=== PATIENT | male | born 1950 | race Caucasian/White ===

== ENCOUNTER 2017-09-20 06:53 | Day surgery (SDC) | payer MEDICARE, BC ==
[~2017-09-20 06:53] MED LIST: RINGER'S SOLUTION,LACTATED 1,000 ML IV PRN
[2017-09-20] MEDS ORDERED: RINGER'S SOLUTION,LACTATED 1,000 ML IV PRN (08:18)
[2017-09-20 09:39] VITALS: BP 123/70
--- NOTE | 2017-09-21 16:55 | OR ---
Operative Report - Dictated Report Narrative: OPERATIVE REPORT DATE OF OPERATION: 09/20/2017 PREOPERATIVE DIAGNOSIS: Family history of colon cancer. No recent dedicated colon studies POSTOPERATIVE DIAGNOSIS: 3 mm area of polypoid change in the cecum (pathology pending). Moderate sigmoid diverticulosis OPERATION: Colonoscopy with hot biopsy forceps polypectomy in the cecum SURGEON: Jayme Carrera MD ANESTHESIA: ENEDELIA Mills CRNA INDICATIONS FOR PROCEDURE: The patient is a 66-year-old male referred by Dr. Casas. The patient had a normal colonoscopy in 2006. His brother had colon cancer at age 73. The patient currently is asymptomatic and moves his bowels twice a day. FINDINGS: 3 mm area of possible polypoid change in the cecum (pathology pending ). Moderate sigmoid diverticulosis NARRATIVE OF PROCEDURE: The patient was identified in the holding area, and prior to the administration of anesthetic, a multidisciplinary timeout was observed. With the patient in the left lateral position and after the administration of intravenous sedation, the perineum was inspected. There was no evidence of pilonidal disease or skin breakdown. The external appearance of the anus was normal. Sphincter tone was good. The flexible fiberoptic colonoscope was inserted into the rectum which was insufflated with air. The rectal mucosa and submucosal vascular pattern appeared normal, the prep was seen to be complete. The scope was advanced through the sigmoid colon, which contained numerous large non-impacted noninflamed diverticular openings. The scope was advanced up the descending colon, and around the splenic flexure where the triangular haustral architecture of the transverse colon was seen. The scope was advanced across the transverse colon, around the hepatic flexure to the cecum, where the confluence of tenia and the ileocecal valve were identified. The mucosa at this level appeared normal. There was a small 3 mm area of possible polypoid change on a proximal cecal fold. This was biopsied with hot biopsy forceps and thoroughly destroyed with electrocautery. The site was seen to be complete and hemostatic. The scope was then slowly withdrawn in a circular fashion so that all aspects of colonic mucosa were inspected. The colon was normal in course and caliber. The haustral architecture appeared well preserved throughout with no evidence of external compression. The mucosa and submucosal vascular pattern appeared normal, specifically there was no gross evidence to suggest colitis or inflammatory bowel disease and no AV malformations were seen. The diverticulosis was moderate in degree and confined primarily to the sigmoid colon. No additional polyps were encountered. The scope was gradually withdrawn to the level of the rectum. As much insufflated air as possible was removed. The scope was withdrawn from the patient and the procedure terminated. The patient tolerated the anesthetic and procedure well without complication and was transferred back to the ambulatory surgery area awake and in stable condition. The patient remained stable throughout a period of postoperative observation. He denied abdominal discomfort, was able to tolerate by mouth intake, and was up without assistance. I shared the operative findings with the patient and he was given copies of the photographs which appear in the medical record. He was discharged home with instructions not to engage in hazardous activity today, but may resume normal activity tomorrow, and advance diet as tolerated. He is to continue those medications as listed in the history and physical exam. I made arrangements to contact him with the biopsy reports and will make additional recommendations for treatment and follow-up based upon those results. Reviewed and electronically signed
== END 2017-09-20 06:54 | disposition home or self-care (01) ==
LOC: AMB 06:53
PROVIDERS: ATTEND Surgery
PROC: 0DBH8ZX Excision of Cecum, Via Natural or Artificial Opening Endoscopic, Diagnostic (ICD-10-PCS; principal; 2017-09-20)
DX: Z12.11 Encounter for screening for malignant neoplasm of colon; I10 Essential (primary) hypertension; E78.5 Hyperlipidemia, unspecified; K57.30 Diverticulosis of large intestine without perforation or abscess without bleeding; Z68.26 Body mass index [BMI] 26.0-26.9, adult; Z80.0 Family history of malignant neoplasm of digestive organs; K63.5 Polyp of colon

== ENCOUNTER 2018-11-01 06:27 | Inpatient (IN) ==
--- NOTE | 2018-10-19 07:53 | ANES ---
Anesthesia Pre Procedure Eval HOME MEDICATIONS Ascorbic Acid [Vitamin C] 1,000 mg PO DAILY 09/17/17 [Last Taken Unknown] Flaxseed Oil [Flax Seed Oil] 1,000 mg PO DAILY 09/17/17 [Last Taken Unknown] Multivit-Min/FA/Lycopen/Lutein [Centrum Silver Tablet] 1 ea PO DAILY 09/17/17 [Last Taken Unknown] ibuprofen 200 mg capsule 200 mg PO Q8H 05/20/18 [Last Taken Unknown] tadalafil 5 mg tablet 5 mg PO DAILY #10 tab 06/08/18 [Last Taken Unknown] rosuvastatin 5 mg tablet 5 mg PO HS #90 tab 07/20/18 [Last Taken Unknown] metoprolol tartrate 100 mg tablet 100 mg PO DAILY #90 tab 09/14/18 [Last Taken Unknown] losartan 50 mg tablet 50 mg PO BID #180 tab 09/16/18 [Last Taken Unknown] tramadol 50 mg tablet See Rx Instructions PO Q6H PRN #60 tab 10/05/18 [Last Taken Unknown] walker See Dose Instructions .ROUTE .MEDSUPPLY #1 ea 10/12/18 [Last Taken Unknown] amlodipine 10 mg tablet 10 mg PO DAILY #90 tab 10/18/18 [Last Taken Unknown] Allergies/Adverse Reactions: Allergies Allergy/AdvReac Type Severity Reaction Status Date / Time No Known Allergies Allergy Verified 10/10/18 14:06 - Planned Procedure Planned Procedure: Left Arthroplasty Total Hip Medication List Reviewed:: Yes Allergies Verified: Yes Medical History (Last Reviewed 10/19/18 @ 07:52 by Wilver Parikh CRNA) Primary osteoarthritis of hips, bilateral (Chronic) Onset Date: ~01/05/18 Leo presents for follow-up of left hip pain secondary to osteoarthritis. At this point he has failed all nonoperative options including oral pain medications, physical therapy, intra-articular corticosteroid injections, and activity modification. He is here for a preoperative visit for planned left total hip arthroplasty. I counseled him on the procedure itself, the risks and benefits, and the expected postoperative recovery. Risks of surgery include, but are not limited to, infection, dislocation, intraoperative fracture, aseptic loosening, leg length discrepancy, persistent pain, stiffness, thigh pain, wound complications, DVT/PE, limp, and risks with anesthesia. After discussion he wishes to proceed with surgery. Hypertension (Chronic) Onset Date: Unknown Hyperlipemia (Chronic) Onset Date: Unknown Wears glasses Onset Date: Unknown Surgical History (Last Reviewed 10/19/18 @ 07:52 by Wilver Parikh CRNA) Hx of colonoscopy Onset Date: ~09/20/17 09/20/17- Deandre; hyperplastic polyp. Mod sigmoid diverticulosis. Recheck 10 yrs. 05/19/06- Juancho;normal Family History (Last Reviewed 10/19/18 @ 07:52 by Wilver Parikh CRNA) Father , Age 75 Colon cancer Lung cancer Mother Dementia AAA (abdominal aortic aneurysm) A-fib Hypertension Sister Thyroid cancer Sister Family history of thyroid problem 2 sisters Son Alive and well Daughter Alive and well - Family Anesthesia History Family History:: no untoward family reactions to anesthesia - Airway/Neck/Teeth Teeth Condition: intact Neck Exam: full range of motion Mallampatti Score: 2 Thyromental (T-M) distance: > 6 cm Mandibulo Hyoid distance: > 3 cm - Respiratory Smoking Status: Never smoker Sleep Apnea currently treated: No Sleep Apnea by current assessment: No - Cardiovascular Cardiac History: hypertension, hyperlipidemia Tolerate Activity: Good - Anesthesia Assessment and Plan ASA Class: PS, II Anesthesia Type Plan: Spinal
[~2018-11-01 06:27] MED LIST changes: -RINGER'S SOLUTION,LACTATED 1,000 ML IV PRN; +ROPIVACAINE HCL/PF 100 MG, EPINEPHrine 0.2 MG, KETOROLAC TROMETHAMINE 30 MG in NORMAL S... IJ PRN; +TRANEXAMIC ACID 1,000 MG in NORMAL SALINE 100 ML IV PRN; +ceFAZolin SODIUM 1 GM VIAL IV PRN
[2018-11-01] MEDS: RINGER'S SOLUTION,LACTATED 1,000 ML IV PRN ×2 (07:07→08:40)
--- NOTE | 2018-11-01 07:22 | ANES ---
Anesthesia Pre Procedure Eval Vitals/Labs: Last Vital Signs Temp 36.0 C 11/01/18 06:30 Pulse 52 L 11/01/18 06:30 Resp 18 11/01/18 06:30 BP 112/74 11/01/18 06:30 Pulse Ox 97 11/01/18 06:30 HOME MEDICATIONS Ascorbic Acid [Vitamin C] 1,000 mg PO DAILY 09/17/17 [Last Taken 10/31/18] Flaxseed Oil [Flax Seed Oil] 1,000 mg PO DAILY 09/17/17 [Last Taken 10/31/18] Multivit-Min/FA/Lycopen/Lutein [Centrum Silver Tablet] 1 ea PO DAILY 09/17/17 [Last Taken 10/31/18] tadalafil 5 mg tablet 5 mg PO DAILY #10 tab 06/08/18 [Last Taken Unknown] rosuvastatin 5 mg tablet 5 mg PO HS #90 tab 07/20/18 [Last Taken 10/31/18] metoprolol tartrate 100 mg tablet 100 mg PO DAILY #90 tab 09/14/18 [Last Taken 10/31/18] losartan 50 mg tablet 50 mg PO BID #180 tab 09/16/18 [Last Taken 11/01/18] walker See Dose Instructions .ROUTE .MEDSUPPLY #1 ea 10/12/18 [Last Taken Unknown] amlodipine 10 mg tablet 10 mg PO DAILY #90 tab 10/18/18 [Last Taken 11/01/18] Aspirin 325 mg PO DAILY 10/19/18 [Last Taken 10/23/18] tramadol 50 mg tablet See Rx Instructions PO Q6H PRN #60 tab 10/26/18 [Last Taken 10/31/18] Allergies/Adverse Reactions: Allergies Allergy/AdvReac Type Severity Reaction Status Date / Time No Known Allergies Allergy Verified 11/01/18 06:42 - Planned Procedure Planned Procedure: Left Total Hip Arthroplasty Medication List Reviewed:: Yes Allergies Verified: Yes Medical History (Last Reviewed 11/01/18 @ 07:21 by Serjio Roldan CRNA) Primary osteoarthritis of hips, bilateral (Chronic) Onset Date: ~01/05/18 Leo presents for follow-up of left hip pain secondary to osteoarthritis. At this point he has failed all nonoperative options including oral pain medications, physical therapy, intra-articular corticosteroid injections, and activity modification. He is here for a preoperative visit for planned left total hip arthroplasty. I counseled him on the procedure itself, the risks and benefits, and the expected postoperative recovery. Risks of surgery include, but are not limited to, infection, dislocation, intraoperative fracture, aseptic loosening, leg length discrepancy, persistent pain, stiffness, thigh pain, wound complications, DVT/PE, limp, and risks with anesthesia. After discussion he wishes to proceed with surgery. Hypertension (Chronic) Onset Date: Unknown Hyperlipemia (Chronic) Onset Date: Unknown Wears glasses Onset Date: Unknown Surgical History (Last Reviewed 11/01/18 @ 07:21 by Serjio Roldan CRNA) Hx of colonoscopy Onset Date: ~09/20/17 09/20/17- Deandre; hyperplastic polyp. Mod sigmoid diverticulosis. Recheck 10 yrs. 05/19/06- Juancho;normal Family History (Last Reviewed 11/01/18 @ 07:21 by Serjio Roldan CRNA) Father , Age 75 Colon cancer Lung cancer Mother AAA (abdominal aortic aneurysm) A-fib Dementia Hypertension Sister Thyroid cancer Arthritis Sister Family history of thyroid problem 2 sisters Son Alive and well Daughter Alive and well - Family Anesthesia History Family History:: no untoward family reactions to anesthesia, no familial bleeding tendencies, no family history of clotting disorders, no family history of premature - Airway/Neck/Teeth Within Normal Limits:: Yes Teeth Condition: intact Mallampatti Score: 2 Thyromental (T-M) distance: > 6 cm Mandibulo Hyoid distance: > 3 cm - Respiratory Respiratory Physical: lungs clear Smoking Status: Never smoker Discussed smoking cessation including day of surgery: No Sleep Apnea currently treated: No Sleep Apnea by current assessment: No Discussed Risks/Treatment of CESAR: No - Cardiovascular Tolerate Activity: Good Heart Sounds: S1 & S2, Regular - Anesthesia Assessment and Plan ASA Class: PS, II Anesthesia Type Plan: Spinal
[2018-11-01] MEDS ORDERED: VANCOMYCIN HCL 1 GM in DEXTROSE 5 % IN WATER 250 ML IV ONE ×2 (09:34)
[2018-11-01] MEDS ORDERED: MAG HYDROX/ALUMINUM HYD/SIMETH 30 ML UDC PO PRN (10:06)
[2018-11-01] MEDS ORDERED: oxyCODONE HCL/ACETAMINOPHEN 1 TAB TABLET PO PRN (10:06)
[2018-11-01] MEDS ORDERED: MAGNESIUM HYDROXIDE 30 ML UDC PO PRN (10:06)
[2018-11-01] MEDS ORDERED: MORPHINE SULFATE 4 MG/ML SYRG IV PRN (10:06)
[2018-11-01] MEDS ORDERED: diphenhydrAMINE HCL 50 MG/ML VIAL IV PRN (10:06)
[2018-11-01] MEDS ORDERED: ACETAMINOPHEN 500 MG TABLET PO PRN (10:06)
[2018-11-01] MEDS ORDERED: ONDANSETRON HCL/PF 2 MG/ML VIAL IV PRN (10:06)
--- NOTE | 2018-11-01 10:15 | OR ---
Operative Report - Dictated Report Narrative: Date: 11/01/2018 Preoperative diagnosis: Left hip degenerative joint disease. Postoperative diagnosis: Left hip degenerative joint disease. Procedure: Left total hip arthroplasty. Surgeon: Barrington Downing M.D. [employer] Marketing Representative: Marck Mcginnis PA-C provided a set of essential, skilled, educated hands that assisted in positioning, transfer, retraction, manipulation, irrigation, closure of wounds, and placement of dressings all of which could not be provided by the available surgical crew. Anesthesia: Spinal and local periarticular joint injection. Complications: None Specimens: Bone for disposal. Estimated blood loss: 200 milliliters. Retained implants: Depuy [place] size 6 femoral stem standard offset. Size 58 millimeter ouside diameter 3-hole Henry Gription acetabular cup. 58 millimeter outside by 36 millimeter inside diameter highly cross-linked acetabular liner. 36 millimeter diameter + 8.5millimeter ceramic femoral head. Cancellous 6.5mm screw 30 millimeter length Indications: Leo is a 68-year-old active male in good health. This patient w as followed in my clinic for period of time with significant complaints of left hip pain consistent with arthritic changes. He has failed conservative measures including but not limited to activity modification, passage of time, medications, and other conservative measures. Patient wished to proceed with surgical treatment. The risks, benefits, and alternatives were discussed in clinic. The risks of , blood clots, bleeding, infection, nerve/tendon blood vessel/ injury, malposition of components, dislocation and/or instability of joint, intraoperative fracture, postoperative limited range of motion, persistent pain, failure of components, and need for additional procedures. Patient wished to proceed. Consent was obtained after answering all questions. Procedure: After marking the correct extremity on the floor, the patient was taken to the operating room. A timeout was performed. IV antibiotics consisting of 2 g of Ancef were administered prior to the procedure. A spinal anesthetic was induced by anesthesia. A Duarte catheter was inserted. The patient was then transitioned to a lateral position on a well-padded pegboard. And an axillary roll was placed. The head was in neutral position. The non- operative down leg was well-padded with SCD and SANDY hose in place. The arms were supported and padded to protect from any undue pressure on the bony prominences and nerves. Well-padded anterior and posterior pelvic and chest posts were secured in order to maintain a stable position of the pelvis. This was placed so that the pelvis was perpendicular to the floor. The body was in line with the pelvis. Once it was felt that we had protected all the bony prominences and the patient was well secured with a safety belt as well, the leg was pre-scrubbed with alcohol, prepped and draped in a standard sterile fashion. A standard anterior lateral hip incision was marked out over the greater trochanter. Ioban drapes were then placed. The skin incision was then made. Sharp dissection with a scalpel utilizing cautery for hemostasis was carried out down to the gluteus and iliotibial band fascia. This was split in line with the skin incision. The greater trochanter bursa was excised. The anterior and posterior margins of the abductor tendon were identified. The anterior 1/3 of the tendon was tagged and reflected off the greater trochanter leaving a sleeve of tendon for repair at the completion of the case. This exposed the underlying hip joint capsule. A limb length stitch was placed in the skin and referenced off a phil on the greater trochanter for evaluation of intraoperative limb lengths. An inverted T-type capsulotomy was made extending this up to the brim of the acetabulum. Using Homans to assist with elevation of the soft tissues of f the anterior, superior, and inferior aspects of the femoral neck, the hip was then placed in a figure 4 position and the femoral head was dislocated. With the leg in an externally rotated and adducted position, the cutting flag was utilized in order to phil for a standard femoral neck cut approximately a fingerbreadth above the level of the lesser trochanter. This was done while protecting the surrounding soft tissues with Homans. The femoral head was then removed and sized for guidance on preparation of the acetabulum. It was noted that there was loss of articular cartilage on both the femoral head and weightbearing portions of the acetabulum. We then returned the leg to the table and turned our attention to the acetabulum. While protecting the surrounding soft tissues, the labrum and remaining tissue in the fovea were excised using a scalpel and cautery. A series of reamers up to size 57 millimeter were utilized to prepare the acetabulum. The final reamer had good purchase and exposed the bleeding subchondral bone. The acetabulum was then thoroughly irrigated ensuring that all bony and cartilaginous materials were removed and the final acetabular shell was impacted into place. This was placed in approximately 40 degrees of abduction and 20 degrees of anteversion utilizing the outrigger and body axis for alignment. This had a good press fit. One 6.5mm cancellous screw was placed in the posterior superior quadrant of the acetabulum. The shell was then thoroughly irrigated and the final polyethylene was impacted into place ensuring that it seated completely. This was then protected with a sponge while we returned our attention to the femur. With the leg in a figure 4 position utilizing Homans for soft tissue protection, a box cutting osteotome, followed by Charnley awl, followed by serial reamers and broaches were utilized in order to prepare the femur. It was found that a size 6 broach gave good axial and rotational stability. The calcar reamer was utilized in order to clean up the cut edges. The proximal femur was visualized to ensure that there were no signs of fracture. A series of heads and necks were trialed. It was found that a standard neck and a + 8.5 mm femoral head gave good overall stability. There was minimal longitudinal instability. With the leg in the position of sleep the femoral head was well covered. Hip range of motion was able to reach full extension and external rotation to greater than 75 degrees prior to impingement along the posterior acetabulum. The hip was able to be flexed to greater than 90 degrees with internal rotation greater than 60 degrees prior to anterior impingement. The limb lengths were near equal based on comparison to the contralateral side and the prior placed limb length stitch. At this point was felt this was the appropriately sized femoral components as well as neck and femoral head. The trial implants were removed. The femur was thoroughly irrigated. The final implants were impacted in the place and the hip was reduced. After ensuring that there was no damage to the proximal femur, the standard periarticular joint injection of ropivacaine, Toradol, and epinephrine were injected into the joint capsule and surrounding soft tissues. 1 g of vancomycin powder was placed in the joint. The capsule was repaired with interrupted #1 Vicryl. The abductor tendon was repaired to the greater trochanter utilizing Mersilene tape through drill holes. This was oversewn with #1 Vicryl. The fascia was closed with running #1 PDS Stratafix. The wounds were thoroughly irrigated as we closed in layers. The deep fat layer was closed with 0 PDS Stratafix. The subcutaneous tissue was closed with interrupted 3-0 Vicryl and the skin with a running subcuticular 4-0 monocryl and Prineo dressing. All sponge, needle, blade, and instrument counts were correct prior to closing the wounds. Sterile dressings consisting of Xeroform, 4 x 4's, ABD, and tape were applied. The patient was awoken and transferred to the hospital bed and then to the postanesthesia care unit in stable condition. Postoperative condition: The plan is to admit to the medical/surgical inpatient floor postoperatively. There will be a projected 1 to 3 day hospital stay. Postoperatively 24 hours of IV antibiotics, pain control, physical therapy, occupational therapy, and medical comanagement will be utilized. Patient will be weightbearing as tolerated with anterior hip precautions. Postoperative films will be obtained in the recovery room.
--- NOTE | 2018-11-01 10:17 | POSTOP NO ---
Date of Surgery: 11/01/18 Anesthesia: Spinal Patient Tolerated the Procedure: Well Post Operative Diagnosis/Procedures: Pre Operative Diagnosis: L hip osteoarthritis Post Operative Diagnosis: L hip osteoarthritis Procedure Performed: L total hip arthroplasty Pigment Pumper: Marck Mcginnis PA-C Tourniquet Time (minutes): None Estimated Blood Loss: 200 mL Drains: None Specimens: Femoral head for disposal Surgical Complications: None Findings: DJD of hip Condition: Good Disposition: Inpatient floor
--- NOTE | 2018-11-01 10:33 | ANES ---
Post Anesthesia Discharge - Transfer of Care Transfer of Care handoff given to nurse: Yes - Discharge from PACU Discharge from PACU when meets criteria: Yes - Discharge to ASU Discharge to ASU-no complications/pt stable: Yes
[2018-11-01] MEDS: NORMAL SALINE 1,000 ML IV PRN ×2 (11:06→19:42)
[2018-11-01] MEDS: oxyCODONE HCL/ACETAMINOPHEN 1 TAB TABLET PO PRN ×3 (13:18→22:20)
--- NOTE | 2018-11-01 14:25 | ANES ---
Post Anesthesia Assessment - Vital Signs Vitals: Last Vital Signs Temp 36.5 C 11/01/18 12:11 Pulse 73 11/01/18 12:11 Resp 17 11/01/18 12:11 BP 116/66 11/01/18 12:11 Pulse Ox 97 11/01/18 12:11 Airway Patency: Normal - Mental Status Level Of Consciousness: Awake - Pain Level Pain Score: 0 - N/V Assessment Nausea/Vomiting Presence: None Dehydration:: No
[2018-11-01] MEDS: ceFAZolin SODIUM 2 GM in DEXTROSE 5 % IN WATER 50 ML IV SCH ×4 (14:34→22:21)
[2018-11-01] MEDS: LOSARTAN POTASSIUM 50 MG TABLET PO SCH (20:56)
[2018-11-01] MEDS: METOPROLOL TARTRATE 100 MG TABLET PO SCH (20:56)
[2018-11-01] MEDS: SENNOSIDES/DOCUSATE SODIUM 1 TAB TABLET PO SCH (22:17)
[2018-11-02] MEDS: oxyCODONE HCL/ACETAMINOPHEN 1 TAB TABLET PO PRN ×5 (03:02→20:16)
[2018-11-02 05:15] LABS: Hematocrit 33.4 % (42.0-52.0); Hemoglobin 11.3 gm/dL (13.5-18.0); Mean Cell Volume 88.8 fl (78-100); Mean Corpuscular Hemoglobin 30.1 pg (27-31); Mean Corpuscular Hgb Conc 33.8 g/dl (32-36); Mean Platelet Volume 9.6 fl (8-11.3); Platelet Count 128 K/mm3 (150-450); Red Blood Count 3.76 M/mm3 (4.7-6.0); Red Cell Distribution Width 12.2 % (11.5-14.0); White Blood Count 6.4 K/mm3 (4.0-10.5)
[2018-11-02 05:23] LABS: Anion Gap 10.8 mmol/L (6.8-13.8); BUN/Creatinine Ratio 12.6 (9.0-21.6); Calcium * 7.5 mg/dL (7.9-10.9); Carbon Dioxide 26.7 mmol/L (24-32.6); Estimated Creat Clear 85.4; Potassium 3.5 mmol/L (3.4-4.6)
[2018-11-02] MEDS: ceFAZolin SODIUM 2 GM in DEXTROSE 5 % IN WATER 50 ML IV SCH ×2 (05:25)
--- NOTE | 2018-11-02 07:54 | PN ---
Subjective - Date and Time Seen Date: 11/02/18 Time: 07:30 Subjective Narrative: Patient reports no acute events. He notes he has been up and ambulate about his room with physical therapy. He has had moderate pain, that has been controlled with p.o. pain medication. Patient is sitting comfortably in the chair currently. Objective - Vitals Vitals: Last Vital Signs Temp 37.1 C 11/02/18 06:00 Pulse 65 11/02/18 06:00 Resp 18 11/02/18 06:00 BP 110/63 11/02/18 06:00 Pulse Ox 96 11/02/18 06:00 - Abnormal Lab Findings Abnormal Lab Findings: Abnormal Lab Results 11/02/18 11/02/18 Range/Units 05:05 05:05 RBC 3.76 L (4.7-6.0) M/mm3 Hgb 11.3 L (13.5-18.0) gm/dL Hct 33.4 L (42.0-52.0) % Plt Count 128 L (150-450) K/mm3 Random Glucose 116 H (70-110) mg/dL Calcium 7.5 L (7.9-10.9) mg/dL - Exam Constitutional: Present: Alert, Cooperative, No distress Respiratory: Present: no respiratory distress Extremity: Present: other - LLE--> sensation intact light touch, distal capillary refill brisk, 5/5 knee flexion extension, mild diffuse tenderness about left hip, postoperative bandages clean/dry/intact Cauti Physician Documentation - Urinary Catheter Management Urethral (Duarte) Date of Insertion: 11/01/18 Time of Insertion: : Date of Removal: 11/02/18 Time of Removal: 07:00 Assessment/Plan Plan Narrative: - 68 y/o male postop day 1 status post left total hip arthroplasty -Weightbearing as tolerated, anterior precautions, assistance as needed -P.o. diet as tolerated -P.o. pain medication as needed -Maintain postoperative dressings in place -PT/OT progress as tolerated -VTE prophylaxis: Lovenox, SCDs in bed, SANDY thurstone -Hemoglobin 11.3, continue to monitor -Disposition: Once all PT goals are met, pain is well controlled, no other acute concerns, patient will be discharged home with outpatient physical therapy - Problems/Diagnosis (1) Status post total hip replacement, left Problem: Acute
[2018-11-02] MEDS: ENOXAPARIN SODIUM 40 MG/0.4 ML SYRG SC SCH (08:17)
[2018-11-02] MEDS: LOSARTAN POTASSIUM 50 MG TABLET PO SCH ×2 (08:17→20:16)
[2018-11-02] MEDS: amLODIPine BESYLATE 10 MG TABLET PO SCH (08:17)
[2018-11-02] MEDS: SENNOSIDES/DOCUSATE SODIUM 1 TAB TABLET PO SCH (20:17)
[2018-11-02] MEDS: METOPROLOL TARTRATE 100 MG TABLET PO SCH (20:17)
[2018-11-03] MEDS: oxyCODONE HCL/ACETAMINOPHEN 1 TAB TABLET PO PRN ×4 (00:55→13:54)
[2018-11-03 05:43] LABS: Hematocrit 32.5 % (42.0-52.0); Hemoglobin 11.1 gm/dL (13.5-18.0); Mean Cell Volume 88.6 fl (78-100); Mean Corpuscular Hemoglobin 30.2 pg (27-31); Mean Corpuscular Hgb Conc 34.2 g/dl (32-36); Mean Platelet Volume 9.9 fl (8-11.3); Platelet Count 124 K/mm3 (150-450); Red Blood Count 3.67 M/mm3 (4.7-6.0); Red Cell Distribution Width 12.1 % (11.5-14.0); White Blood Count 8.1 K/mm3 (4.0-10.5)
[2018-11-03 05:47] LABS: Anion Gap 8.3 mmol/L (6.8-13.8); BUN/Creatinine Ratio 14.8 (9.0-21.6); Calcium * 8.1 mg/dL (7.9-10.9); Carbon Dioxide 28.2 mmol/L (24-32.6); Estimated Creat Clear 92.2; Potassium 3.5 mmol/L (3.4-4.6)
[2018-11-03] MEDS: ENOXAPARIN SODIUM 40 MG/0.4 ML SYRG SC SCH (09:22)
[2018-11-03] MEDS: amLODIPine BESYLATE 10 MG TABLET PO SCH (09:24)
[2018-11-03] MEDS: LOSARTAN POTASSIUM 50 MG TABLET PO SCH (09:24)
--- NOTE | 2018-11-03 09:59 | DS ---
(1) Status post total hip replacement, left Problem: Acute Description of Stay: Patient is a 68-year-old male who was admitted postoperatively after a left total hip arthroplasty. Patient has been monitored for pain control, return to by mouth diet, physical therapy. Patient's pain is well-controlled with by mouth pain medication, he has met all physical therapy goals. Patient is return to regular diet without complication. Bandages were removed today. Exam revealed incision clean/dry/intact, no acute erythema or drainage, sensation intact to light touch, 4+/5 knee flexion and extension, distal capillary refill brisk, mild diffuse tenderness about his left hip. Discussed with patient follow-up at 2 weeks postoperatively and orthopedic outpatient clinic. Patient will continue with discharge recommendations as follows: -Weight-bearing as tolerated, anterior precautions, assistive devices as needed -By mouth diet as tolerated -By mouth pain medication when necessary -PT/OT progress as tolerated, outpatient -VTE prophylaxis: Lovenox until 10 days postoperatively followed by 325 mg aspirin daily for 4-6 weeks, SANDY winters -Follow-up at orthopedic outpatient clinic at 2 weeks postoperatively -Monitor dressing for any drainage or erythema, call if any acute concerns Procedures Performed: see notes below List Procedures: s/p left total hip arthroplasty Results and Findings: Lab Pending Results 11/01/18 08:00: WBC Cancelled, Corrected WBC (auto) Cancelled, RBC Cancelled, Hgb Cancelled, Hct Cancelled, MCV Cancelled, MCH Cancelled, MCHC Cancelled, RDW Cancelled, Plt Count Cancelled, MPV Cancelled, Immature Gran % (Auto) Cancelled, Immature Gran # (Auto) Cancelled, Neutrophils % Cancelled, Lymphocytes % Cancelled, Monocytes % Cancelled, Eosinophils % Cancelled, Basophils % Cancelled, Nucleated RBC % Cancelled, Neutrophils # Cancelled, Lymphocytes # Cancelled, Monocytes # Cancelled, Eosinophils # Cancelled, Absolute Basophils Cancelled 11/01/18 08:00: Sodium Cancelled, Plasma Sodium Cancelled, Potassium Cancelled, Chloride Cancelled, Carbon Dioxide Cancelled, Anion Gap Cancelled, BUN Cancelled, Creatinine Cancelled, Est GFR (Non-Af Amer) Cancelled, BUN/Creatinine Ratio Cancelled, Random Glucose Cancelled, Calcium Cancelled 11/02/18 05:05: WBC 6.4, RBC 3.76 L, Hgb 11.3 L, Hct 33.4 L, MCV 88.8, MCH 30.1, MCHC 33.8, RDW 12.2, Plt Count 128 L, MPV 9.6 11/02/18 05:05: Sodium 137, Plasma Sodium 137, Potassium 3.5, Chloride 103, Carbon Dioxide 26.7, Anion Gap 10.8, BUN 12, Creatinine 0.95, Est GFR (Non-Af Amer) 84, BUN/Creatinine Ratio 12.6, Random Glucose 116 H, Calcium 7.5 L 11/03/18 05:36: WBC 8.1 D, RBC 3.67 L, Hgb 11.1 L, Hct 32.5 L, MCV 88.6, MCH 30.2, MCHC 34.2, RDW 12.1, Plt Count 124 L, MPV 9.9 11/03/18 05:36: Sodium 136, Plasma Sodium 136, Potassium 3.5, Chloride 103, Carbon Dioxide 28.2, Anion Gap 8.3, BUN 13, Creatinine 0.88, Est GFR (Non-Af Amer) 91, BUN/Creatinine Ratio 14.8, Random Glucose 107, Calcium 8.1 Discharge Location: Home Disposition: Home self-care Condition: Good Discharge Activity: Activity as tolerated, Weight bearing - anterior precautions Discharge Diet: General/regular food Referrals: Mehrdad Casas MD [Primary Care Provider] - Problem Oriented Discharge Instructions to Patient/Family: Total Hip Replacement, Care After, [id number] Language (Moldovan or [place] Available): Moldovan Additional Patient Instructions (free text): Post-op Physical Therapy scheduled for 11/04/18 at 8:00am at [facility]. Follow-up appointment scheduled in the office with Dr. Downing on 11/16/18 at 9:15am. Prescriptions (Any new or edited meds): Enoxaparin Sodium [Lovenox] 40 mg SC Q24H #8 disp.syrin oxyCODONE HCL/ACETAMINOPHEN [Percocet 5 MG/325 MG] 1 - 2 tab PO Q4H PRN #90 tab PRN Reason: Severe Pain (Pain Scale 7-10) Complete Home Medications List: Complete Home Medication List: Ascorbic Acid [Vitamin C] 1,000 mg PO DAILY 09/17/17 Flaxseed Oil [Flax Seed Oil] 1,000 mg PO DAILY 09/17/17 Multivit-Min/FA/Lycopen/Lutein [Centrum Silver Tablet] 1 ea PO DAILY 09/17/17 tadalafil 5 mg tablet 5 mg PO DAILY #10 tab 06/08/18 rosuvastatin 5 mg tablet 5 mg PO HS #90 tab 07/20/18 metoprolol tartrate 100 mg tablet 100 mg PO DAILY #90 tab 09/14/18 losartan 50 mg tablet 50 mg PO BID #180 tab 09/16/18 walker See Dose Instructions .ROUTE .MEDSUPPLY #1 ea 10/12/18 amlodipine 10 mg tablet 10 mg PO DAILY #90 tab 10/18/18 Aspirin 325 mg PO DAILY 10/19/18 tramadol 50 mg tablet See Rx Instructions PO Q6H PRN #60 tab 10/26/18 Enoxaparin Sodium [Lovenox] 40 mg SC Q24H #8 disp.syrin 11/03/18 Sennosides/Docusate Sodium [Senokot-S] 2 tab PO HS tablet 11/03/18 oxyCODONE HCL/ACETAMINOPHEN [Percocet 5 MG/325 MG] 1 - 2 tab PO Q4H PRN #90 tab 11/03/18
[2018-11-03 13:50] VITALS: BP 110/67
== END 2018-11-03 14:54 | disposition home or self-care (01) | DRG 470 ==
LOC: MS 06:27
PROVIDERS: ADMIT Orthopaedic Surgery; ATTEND Orthopaedic Surgery
CPT/HCPCS: 36415; 73502; 80048; 85025; 85027; 87081; 97110; 97116; 97161; 97165; 97530; 97535